=== PATIENT | female | born 1960 | race Caucasian/White ===

== ENCOUNTER 2018-09-24 12:04 | Emergency (ER) | payer MEDICARE, BC ==
[2018-09-24] MEDS ORDERED: MORPHINE SULFATE 4 MG/ML SYRINGE IM STA (12:23)
[2018-09-24] MEDS ORDERED: DIAZEPAM 5 MG TAB PO STA (12:23)
--- NOTE | 2018-09-24 12:34 | ED ---
Fall HPI - General Chief Complaint: Fall Stated Complaint: Fall Time Seen by Provider: 09/24/18 12:12 Source: patient Mode of arrival: ambulatory - History of Present Illness Initial Comments: 58-year-old female presenting today for chief complaint of low back pain. Patient states she fell from a porch off the edge onto the ground about 3 steps in height < 4 ft. She states she immediately noted low back pain. Patient states she was able to ambulate. She states she did use restroom before arriving denies any urinary retention. Patient denies any pain down the legs she denies any loss sensation or muscle weakness of the lower extremity. She states walking does have recurrent spasm in the lower back. Patient denies any injury to her middle of her upper back she denies any neck pain she denies any head injury. Patient has a loss of consciousness. Remaining review of systems negative patient denies any injury to the extremities. Upon arrival patient appears uncomfortable holding low back. - Related Data Previous Rx's Medication Instructions Recorded Acetaminophen with Codeine 1 tab PO Q4H PRN 3 Days #18 tab 09/24/18 [Tylenol w/codeine #3] Diazepam [Valium] 5 mg PO BID 4 Days #8 tab 09/24/18 Docusate [Colace] 100 mg PO DAILY 7 Days #7 capsule 09/24/18 Allergies Allergy/AdvReac Type Severity Reaction Status Date / Time No Known Allergies Allergy Verified 09/24/18 12:53 Review of Systems ROS Statement: Those systems with pertinent positive or pertinent negative responses have been documented in the HPI. ROS Other: All systems not noted in ROS Statement are negative. Past Medical History Additional Past Medical History / Comment(s): Back problems History of Any Multi-Drug Resistant Organisms: None Reported Past Surgical History: Section Past Psychological History: No Psychological Hx Reported Smoking Status: Former smoker Past Alcohol Use History: None Reported Past Drug Use History: None Reported General Exam - General Exam Comments Initial Comments: General: The patient is awake and alert, in no distress Appears uncomfortable holding low back. Eye: +3 m pupils are equal, round and reactive to light, extra-ocular movements are intact. No nystagmus. There is normal conjunctiva bilaterally. No signs of icterus. Ears, nose, mouth and throat: There are moist mucous membranes and no oral lesions. Neck: The neck is supple, there is no tenderness or JVD. Cardiovascular: There is a regular rate and rhythm. No murmur, rub or gallop is appreciated. Respiratory: Lungs are clear to auscultation, respirations are non-labored, breath sounds are equal. No wheezes, stridor, rales, or rhonchi. Gastrointestinal: Soft, non-distended, non-tender abdomen without masses or organomegaly noted. There is no rebound or guarding present. No CVA tenderness. Musculoskeletal: No muscle spasm in the lumbar spine with midline and paravertebral tenderness. No midline or paravertebral tenderness of the thoracic or cervical spine. Normal ROM at the hips, no internal or external rotation, no shortness, no tenderness. No midline or paravertebral tenderness to palpation of the C-spine. Strength 5/5 of the LE equal b/l however induced back pain/spasm. Sensation intact of the LE including saddle region. DP and radial pulses equal bilaterally 2+. Bruising lacerations or abrasions of the cervical thoracic or lumbar spine of upon inspection Neurological: A&O x 3. CN II-XII intact, There are no obvious motor or sensory deficits. Coordination appears grossly intact. Speech is normal. Skin: Skin is warm and dry and no rashes or lesions are noted. Psychiatric: Cooperative, appropriate mood & affect, normal judgment. Limitations: no limitations Course Vital Signs 09/24/18 09/24/18 12:08 14:08 Temperature 98.1 F 97.4 F L Pulse Rate 91 69 Respiratory 2 L 18 Rate Blood Pressure 154/84 138/91 O2 Sat by Pulse 100 98 Oximetry Medical Decision Making - Medical Decision Making 58yo female presenting today for fall. Patient complaining of low back pain. Patient neurovascularly intact no signs of cauda equina on history or examination. Patient symptoms improved with morphine and valium. Ambulatory. CT revealedmoderate superior endplate compartment impression fracture of L2 possible small prevertebral hematoma consistent with recent fracture. Multilevel disc bulging. Patient requesting discharge. I discussed the case as well as imaging studies with Dr. Ott who called on-call or thick surgeries who had Dr. Del Rio, who specializes in back/spine, who recommended discharge with TLSO brace and outpatient f/u. Patient was provided prescription for Tylenol No. 3. In addition to Valium. The use as well as possible risks involving benzodiazepines and opiates were discussed at length the patient verbalizes understanding. Patient was discharged appearing well and all questions answered to the best of my ability. Disposition Clinical Impression: Fall, Compression fracture of L2 Disposition: HOME SELF-CARE Condition: Good Instructions (If sedation given, give patient instructions): Vertebral Compression Fracture (ED) Additional Instructions: Please use medication as discussed. No driving consuming alcohol operating machinery or working under the influence of valium or tylenol #3. Please follow- up with Dr. Del Rio in the next 2-3 days, please use braces at all times as discussed especially ambulation. Please return to emergency room if the symptoms increase or worsen or for any other concerns. Prescriptions: Docusate [Colace] 100 mg PO DAILY 7 Days #7 capsule Acetaminophen with Codeine [Tylenol w/codeine #3] 1 tab PO Q4H PRN 3 Days #18 tab PRN Reason: Severe Pain Diazepam [Valium] 5 mg PO BID 4 Days #8 tab Is patient prescribed a controlled substance at d/c from ED?: No Referrals: None,Stated [Primary Care Provider] - 1-2 days Dimitris Del Rio, [Doctor of Osteopathic Medicine] - 1-2 days Time of Disposition: 15:00
--- NOTE | 2018-09-24 13:39 | XR ---
EXAMINATION TYPE: XR Hip Bilateral and AP pelvis DATE OF EXAM: 09/24/2018 COMPARISON: None HISTORY: Pain, fall TECHNIQUE: Bilateral hips are examined in 2 projections each supplemented with an AP pelvis FINDINGS: Femoral heads articulate with the acetabulum. Sacroiliac joints and symphysis pubis are nor mal. No acute fractures are evident. Sacrum as visualized is unremarkable. Joint spaces are preserved. Normal bowel gas present. IMPRESSION: 1. Normal bilateral hips and AP pelvis
--- NOTE | 2018-09-24 13:44 | CT ---
EXAMINATION TYPE: CT lumbar spine wo con DATE OF EXAM: 09/24/2018 1:20 PM COMPARISON: None HISTORY: low back pain. CT DLP: 561 mGycm Automated exposure control for dose reduction was used. Unenhanced CT of the lumbar spine was performed. Bone and soft tissue window settings are submitted as well as coronal and sagittal reconstructions. Subsegmental consolidation at both lung bases. L1-L2: There is a vacuum disc compatible with degenerative disc disease and a moderate superior endpl ate compression fracture. Neural foramina remain patent. No obvious canal stenosis. L2-L3: No disc herniation or canal stenosis. Hypertrophic change of the facets. Neural foramina paten t. L3-L4: More advanced facet arthropathy greater on the right with circumferential disc bulging and mil d effacement of thecal sac. Mild bilateral foraminal encroachment. L4-L5: Advanced facet arthropathy. No acute fracture. Broad-based central disc bulging with mild effa cement of thecal sac. Neural foramina remain patent. L5-S1: Facet arthropathy and central disc bulging greater paracentrally left with mild encroachment u queenie the exiting nerve roots greater on the left. Disc protrusion suspected. No acute fracture. IMPRESSION: 1. There is an age-indeterminate moderate superior endplate compression fracture of L2. Additionally there is increased density along the anterior margin of the L1-2 junction which may represent a small prevertebral hematoma which would be suggestive of a recent fracture. Infectious etiology not exclud ed. MRI with contrast recommended.. 2. There is multilevel degenerative disc disease and facet arthropathy with multilevel disc bulging m ost marked at L5-S1 centrally and paracentrally the left where he protrusion is suspected. This could be correlated with MRI. 3. Right basilar subsegmental atelectasis or infiltrate. Could not exclude retrocrural lymphadenopath y which could be correlated with a dedicated CT of the abdomen and pelvis..
[2018-09-24 14:08] VITALS: BP 138/91; PULSE 69; RESP 18; TEMP 97.4
== END 2018-09-24 15:05 | disposition home or self-care (01) ==
LOC: EC 12:04
DX: M48.56XA Collapsed vertebra, not elsewhere classified, lumbar region, initial encounter for fracture (principal); Z87.891 Personal history of nicotine dependence; W17.89XA Other fall from one level to another, initial encounter; Y92.009 Unspecified place in unspecified non-institutional (private) residence as the place of occurrence of the external cause
CPT/HCPCS: 73521; 72131; 99284; 96372; J2270

== ENCOUNTER → 2021-06-24 | Outpatient (CLI) | payer BC ==
[2021-06-24 15:26] LABS: ALT 10 U/L (8-44); AST 16 U/L (13-35); Albumin 4.7 g/dL (3.8-4.9); Albumin/Globulin Ratio 1.72 (1.60-3.17); Alkaline Phosphatase 48 U/L (41-126); BUN/Creat Ratio 21.83 Ratio (12.00-20.00); Blood Urea Nitrogen 16.2 mg/dL (9.0-27.0); Calcium 9.8 mg/dL (8.7-10.3); Carbon Dioxide 23.9 mmol/L (20.0-27.5); Chloride 103 mmol/L (96-109); Globulin 2.8 g/dL (1.6-3.3); Glucose 114 mg/dL (70-110); Non-African American GFR(CKD) 87.2 (60.0-200.0); Potassium 4.9 mmol/L (3.5-5.5); Sodium 139 mmol/L (135-145); Total Protein 7.5 g/dL (6.2-8.2)
[2021-06-24 15:43] LABS: Basophils # (A) 0.03 X 10*3/uL (0.00-0.10); Basophils % (A) 0.6 %; Eosinophils # (A) 0.07 X 10*3/uL (0.04-0.35); Eosinophils % (A) 1.3 %; HCT 41.6 % (37.2-46.3); HGB 13.3 g/dL (12.0-15.0); Lymphocytes # (A) 1.44 X 10*3/uL (0.90-5.00); Lymphocytes % (A) 27.3 %; MCH 30.5 pg (27.0-32.0); MCV 95.4 fL (80.0-97.0); Mean Platelet Volume 11.2 fL (9.5-12.2); Monocytes # (A) 0.41 X 10*3/uL (0.20-1.00); Monocytes % (A) 7.8 %; Neutrophils % (A) 62.6 %; Platelet Count 197 X 10*3/uL (140-440); RBC 4.36 X 10*6/uL (4.10-5.20); RDW 12.7 % (11.5-14.5); WBC 5.27 X 10*3/uL (4.50-10.00)
[2021-06-24 15:58] LABS: C Reactive Protein <0.30 mg/dL (0.00-0.80)
[2021-06-24 17:29] LABS: Gliadin AB IgA, Deaminated NEGATIVE (NEGATIVE); Gliadin AB IgA, Unit 1.3 U/mL; Gliadin AB IgG, Deaminated NEGATIVE (NEGATIVE)
[2021-06-24 17:59] LABS: Erythrocyte Sedimentation Rate 13 mm/Hr (0-30)
== END | disposition home or self-care (01) ==
LOC: LABWHC1 10:30
PROVIDERS: ATTEND Nurse Practitioner Family
DX: R19.4 Change in bowel habit (principal)
CPT/HCPCS: 36415; 80053; 83516; 85025; 85652; 86140

== ENCOUNTER 2021-07-29 06:25 | Day surgery (SDC) | payer BC ==
[2021-07-28 09:59] VITALS: BMI 24.5
[~2021-07-29 06:25] MED LIST: LACTATED RINGERS 1,000 ML IV SCH
[2021-07-29 07:01] VITALS: TEMP 97.4
[2021-07-29] MEDS ORDERED: LIDOCAINE 1% INJ 10MG/ML (20 ML MDV) ONE (07:30)
[2021-07-29] MEDS ORDERED: PROPOFOL 10 MG/ML 20 ML VIAL IV ONE (07:30)
--- NOTE | 2021-07-29 07:56 | P.PCN ---
Date of Procedure: 07/29/21 Procedure(s) Performed: Brief history: Patient is a pleasant 61-year-old white female scheduled for an elective upper endoscopy as well as colonoscopy as a part of evaluation of GERD and change in bowel Procedure performed: Esophagogastroduodenoscopy with biopsy Colonoscopy with snare polypectomy and Endo Clip placement Preoperative diagnosis: GERD Change in bowel Anesthesia: MAC Procedure: After informed consent was obtained from the patient was brought into the endoscopy unit and IV sedation was administered by anesthesia under continuous monitoring. Initially upper endoscopy was done. The Olympus GF 160 video endoscope was inserted inserted into the mouth and esophagus intubated without a ny difficulty and was gradually advanced into the stomach and duodenum and carefully examined. The bulb and second part of the duodenum appeared normal. Biopsies were done from the duodenum to rule out celiac disease. The scope was then withdrawn into the stomach adequately insufflated with air and upon careful examination the antrum and mild erosive gastritis and biopsies were done from this area. The body, cardia and fundus appeared normal. The scope was then withdrawn into the esophagus. The GE junction was located at 39cm to the incisors. It appeared regular with no erythema erosions or ulcerations. Rest of the esophagus appeared normal. Patient tolerated the procedure well. At this time the patient continued to remain sedation. Initial digital rectal examination was normal. Olympus CF 160 video colonoscope was then inserted into the rectum and gradually advanced to the cecum without any difficulty. Careful examination was performed as the scope was gradually being withdrawn. The prep was excellent. The cecum, appeared normal. In the ascending colon there was a 2.5 and admitted broad-based polyp that was completely removed by snare polypectomy. Following polypectomy and Endo Clip placed. Rest of the ascending colon, transverse colon, descending colon, sigmoid colon and rectum appeared normal. The sigmoid: There was a 1 cm pedunculated polyp removed by snare polypectomy Retroflexion was performed in the rectum and small internal were noted. Scattered sigmoid diverticulosis. Patient tolerated the procedure well. Impression: 1. Upper endoscopy revealed mild antral erosive gastritis. 2. Colonoscopy revealed 2.5 cm broad-based ascending colon polyp status post piecemeal snare polypectomy followed by Endo Clip placement and a 1 cm; sigmoid polyp status post polypectomy. Small internal hemorrhoids and scattered sigmoid diverticula Recommendations: Findings of this examination were discussed with the patient as well as her family. She was advised to follow with the biopsy results. She'll be seen in office in 2 weeks. She'll be seen in office in 1 week to discuss biopsy results. If the biopsy results and plan a repeat colonoscopy in 3 years.
[2021-07-29 08:22] VITALS: BP 131/82; PULSE 83; RESP 16
== END 2021-07-29 08:43 | disposition home or self-care (01) ==
LOC: ORWHC2ENDO 06:25
PROVIDERS: ATTEND Internal Medicine Gastroenterology
DX: D12.2 Benign neoplasm of ascending colon (principal); D12.5 Benign neoplasm of sigmoid colon; K57.30 Diverticulosis of large intestine without perforation or abscess without bleeding; K21.9 Gastro-esophageal reflux disease without esophagitis; K29.50 Unspecified chronic gastritis without bleeding; Z79.899 Other long term (current) drug therapy
CPT/HCPCS: 88305; 88342; 45385; 43239; J2001; J2704; 45382

== ENCOUNTER 2023-01-01 14:12 | Emergency (ER) | payer OTHER ==
[2023-01-01 14:37] VITALS: RESP 18; TEMP 98.1
--- NOTE | 2023-01-01 15:30 | ED ---
Chest Pain HPI - General Source: patient, RN notes reviewed Mode of arrival: ambulatory Limitations: no limitations <Rima Flower - Last Filed: 01/01/23 15:36> - General Source: RN notes reviewed, old records reviewed - History of Present Illness MD Complaint: chest pain, other (Shortness of breath weakness) -: month(s) Onset: during rest, during exertion Pain Location: substernal, left chest Pain Radiation: none Severity: moderate Severity scale (1-10): 7 Consistency: constant Improves With: nothing Worsens With: nothing Context: recent illness Anginal Symptoms: diaphoresis, dyspnea, sense of impending doom Other Symptoms: palpitations Treatments Prior to Arrival: none <Irineo Silva - Last Filed: 01/03/23 12:35> - General Chief Complaint: Chest Pain Stated Complaint: chest pain, sob, palpitations Time Seen by Provider: 01/01/23 15:28 - History of Present Illness Initial Comments: Patient is a 62 year old female who presents to the emergency department for chest pain. (Rima Flower) This is a 62-year-old female to the ER today for evaluation of weakness chest pain shortness of breath. Patient admits to symptoms ongoing for about a month now. She states something is wrong as well as having persistent left-sided chest pain. Patient has no medical history takes no medications nonsmoker nondrinker. No travel no trauma. Patient has been tested for Coban was negative has been treated for bronchitis without improvement. Patient presents to the ER today for evaluation of chest pain (Irineo Silva) - Related Data Home Medications Medication Instructions Recorded Confirmed L.acidoph,Paracasei, B.lactis 1 cap PO DAILY 01/01/23 01/01/23 [Probiotic] Vitamin D3(Unknown Dose) 1 tab PO DAILY 01/01/23 01/01/23 Zinc Gluconate [Zinc] 50 mg PO DAILY 01/01/23 01/01/23 Allergies Allergy/AdvReac Type Severity Reaction Status Date / Time No Known Allergies Allergy Verified 01/01/23 17:32 Review of Systems ROS Other: All systems not noted in ROS Statement are negative. <Rima Flower - Last Filed: 01/01/23 15:36> ROS Other: All systems not noted in ROS Statement are negative. <Irineo Silva - Last Filed: 01/03/23 12:35> ROS Statement: Those systems with pertinent positive or pertinent negative responses have been documented in the HPI. EKG Findings - EKG Comments: EKG Findings:: She is sinus 73 KS 160 QRS 86 QTc 4:30 <Irineo Silva - Last Filed: 01/03/23 12:35> Past Medical History Past Medical History: GERD/Reflux Additional Past Medical History / Comment(s): alternating with constipation and diarrhes-having some bleeding with stools.hx Back problems History of Any Multi-Drug Resistant Organisms: None Reported Past Surgical History: Section Additional Past Surgical History / Comment(s): c sect x 3 Past Anesthesia/Blood Transfusion Reactions: Motion Sickness, Postoperative Nausea & Vomiting (PONV) Past Psychological History: No Psychological Hx Reported Smoking Status: Former smoker Past Alcohol Use History: None Reported Past Drug Use History: None Reported - Past Family History Mother Family Medical History: Cancer Additional Family Medical History / Comment(s): breast CA Father Family Medical History: Cancer Additional Family Medical History / Comment(s): kidney <Rima Flower - Last Filed: 01/01/23 15:36> General Exam Limitations: no limitations <Rima Flower - Last Filed: 01/01/23 15:36> General appearance: alert, in no apparent distress, anxious Head exam: Present: atraumatic, normocephalic, normal inspection Eye exam: Present: normal appearance, PERRL, EOMI. Absent: scleral icterus, con junctival injection, periorbital swelling ENT exam: Present: normal exam, mucous membranes moist Neck exam: Present: normal inspection. Absent: tenderness, meningismus, lymphadenopathy Respiratory exam: Present: normal lung sounds bilaterally. Absent: respiratory distress, wheezes, rales, rhonchi, stridor Cardiovascular Exam: Present: regular rate, normal rhythm, normal heart sounds. Absent: systolic murmur, diastolic murmur, rubs, gallop, clicks GI/Abdominal exam: Present: soft, normal bowel sounds. Absent: distended, tenderness, guarding, rebound, rigid Extremities exam: Present: normal inspection, full ROM, normal capillary refill. Absent: tenderness, pedal edema, joint swelling, calf tenderness Back exam: Present: normal inspection Neurological exam: Present: alert, oriented X3, CN II-XII intact Psychiatric exam: Present: normal affect, normal mood Skin exam: Present: warm, dry, intact, normal color. Absent: rash <Irineo Silva - Last Filed: 01/03/23 12:35> - General Exam Comments Initial Comments: Visual Physical Exam Vital signs reviewed General: Well-appearing, nontoxic, no acute distress. Head: Normocephalic, atraumatic Eyes: PERRLA, EOMI ENT: Airway patent Chest: Nonlabored breathing Skin: No visual rash, normal skin tone Neuro: Alert and oriented 3 Musculoskeletal: No gross abnormalities (ChingRima) Course <Irineo Silva - Last Filed: 01/03/23 12:35> Vital Signs 01/01/23 01/01/23 01/01/23 14:34 15:50 20:37 Temperature 98.1 F Pulse Rate 87 80 67 Respiratory 18 18 18 Rate Blood Pressure 155/95 149/83 120/87 O2 Sat by Pulse 99 99 96 Oximetry - Reevaluation(s) Reevaluation #1: 01/01/23 18:43 Medical records reviewed (Irineo Silva) Reevaluation #2: 01/01/23 18:43 Patient still with significant chest pain here in the ER Studies chest x-ray interpreted by me negative for acute disease (Irineo Silva) Reevaluation #3: 01/01/23 19:52 Patient informed of results and questions answered Studies Chest x-rays negative for acute disease (Irineo Silva) Reevaluation #4: 01/01/23 18:43 Was pt. sent in by a medical professional or institution (, PA, SOLUTION ARCHITECT, urgent care, hospital, or longterm...) When possible be specific @ -no Did you speak to anyone other than the patient for history (EMS, parent, family, police, friend...)? What history was obtained from this source @ -no Did you review nursing and triage notes (agree or disagree)? Why? @ -agree Are old charts reviewed (outside hosp., previous admission, EMS record, old EKG, old radiological studies, urgent care reports/EKG's, longterm records)? Report findings @ -yes Differential Diagnosis (chest pain, altered mental status, abdominal pain women, abdominal pain men, vaginal bleeding, weakness, fever, dyspnea, syncope, headache, dizziness, GI bleed, back pain, seizure, CVA, palpatations, mental health, musculoskeletal)? @ -prior EKG interpreted by me (3pts min.). @ -yes X-rays interpreted by me (1pt min.). @ -yes CT interpreted by me (1pt min.). @ -no U/S interpreted by me (1pt. min.). @ -no What testing was considered but not performed or refused? (CT, X-rays, U/S, labs)? Why? @ -none What meds were considered but not given or refused? Why? @ -none Did you discuss the management of the patient with other professionals (professionals i.e. , PA, SOLUTION ARCHITECT, lab, RT, psych nurse, social staff worker, warehouse processor, teacher, corrections officer, immigration case worker)? Give summary @ -no Was smoking cessation discussed for >3mins.? @ -no Was critical care preformed (if so, how long)? @ -no Were there social determinants of health that impacted care today? How? (Homelessness, low income, unemployed, alcoholism, drug addiction, transportation, low edu. Level, literacy, decrease access to med. care, [facility], rehab)? @ -none Was there de-escalation of care discussed even if they declined (Discuss DNR or withdrawal of care, Hospice)? DNR status @ -no What co-morbidities impacted this encounter? (DM, HTN, Smoking, COPD, CAD, Cancer, CVA, ARF, Chemo, Hep., AIDS, mental health diagnosis, sleep apnea, morbid obesity)? @ -none Was patient admitted / discharged? Hospital course, mention meds given and route, prescriptions, significant lab abnormalities, going to OR and other pertinent info. @ - 62 female to the emergency department for evaluation. Patient presents today for evaluation regards to shortness of breath weakness fatigue and chest pain. Symptoms for about a month now. No change in current symptoms here in the ER but patient is reassured or findings, she feels good with reassurance and can be discharged home Discharge Undiagnosed new problem with uncertain prognosis? @ -no Drug Therapy requiring intensive monitoring for toxicity (Heparin, Nitro, Insulin, Cardizem)? @ -no Were any procedures done? @ -no Diagnosis/symptom? @ -Chest pain, fatigue and weakness Acute, or Chronic, or Acute on Chronic? @ -Acute Uncomplicated (without systemic symptoms) or Complicated (systemic symptoms)? @ -Complicated Side effects of treatment? @ -no Exacerbation, Progression, or Severe Exacerbation? @ -exacerbation Poses a threat to life or bodily function? How? (Chest pain, USA, OR, pneumonia, PE, COPD, DKA, ARF, appy, cholecystitis, CVA, Diverticulitis, Homicidal, Suicidal, threat to staff... and all critical care pts) @ -yes if chest pain is ACS (Irineo Silva) Reevaluation #5: 01/01/23 18:43 Differential Chest Pain: Stable Angina, Unstable Angina, STEMI, NSTEMI Aortic Dissection, Pneumothorax, Musculoskeletal, Esophageal Spasm GERD, Cholecystitis, Pancreatitis, Zoster, this is not meant to be an all-inclusive list. Differential Dyspnea: Coronary syndrome, arrhythmia, tamponade, asthma, COPD, pulmonary embolism, pneumonia, pneumothorax, pulmonary effusion, anaphylaxis, diabetic ketoacidosis, flailed chest, pulmonary contusion, diaphragmatic rupture, anemia, neuromuscular, this is not meant to be an all-inclusive list. Differential Weakness: Hypoglycemia, shock, sepsis, hyponatremia, anemia, infection, OR, ETOH, adverse medicine reaction, overdose, stroke, this is not meant to be an all-inclusive list. (Irineo Silva) Chest Pain [facility] <Rima Flower - Last Filed: 01/01/23 15:36> <Irineo Silva - Last Filed: 01/03/23 12:35> - MDM I performed the QuickNote portion of this chart - Rima Flower PA-C (Rima Flower) 62 female to the emergency department for evaluation. Patient presents today for evaluation regards to shortness of breath weakness fatigue and chest pain. Symptoms for about a month now. No change in current symptoms here in the ER but patient is reassured or findings, she feels good with reassurance and can be discharged home (Irineo Silva) Disposition <Rima Flower - Last Filed: 01/01/23 15:36> Is patient prescribed a controlled substance at d/c from ED?: No Time of Disposition: 19:50 <Irineo Silva - Last Filed: 01/03/23 12:35> Clinical Impression: Atypical chest pain, Weakness, Fatigue, Chest pain Disposition: HOME SELF-CARE Condition: Good Instructions (If sedation given, give patient instructions): Weakness (ED) Referrals: None,Stated [Primary Care Provider] - 1-2 days
--- NOTE | 2023-01-01 15:51 | XR ---
EXAMINATION TYPE: XR chest 2V DATE OF EXAM: 01/01/2023 COMPARISON: NONE HISTORY: Chest pain and shortness of breath. TECHNIQUE: Frontal and lateral views of the chest are obtained. FINDINGS: There is no focal air space opacity, pleural effusion, or pneumothorax seen. The cardiac silhouette size is within normal limits. The osseous structures are intact. IMPRESSION: No acute cardiopulmonary process.
[2023-01-01 16:20] LABS: ALT 29 U/L (4-34); AST 25 U/L (14-36); African American GFR (CKD) >90 (>60 ml/min/1.73 sqM); Albumin 4.8 g/dL (3.5-5.0); Alkaline Phosphatase 51 U/L (38-126); Anion Gap 9 mmol/L; Blood Urea Nitrogen 13 mg/dL (7-17); Calcium 9.7 mg/dL (8.4-10.2); Carbon Dioxide 27 mmol/L (22-30); Chloride 103 mmol/L (98-107); Glucose 97 mg/dL (74-99); Lipase 126 U/L (23-300); Magnesium 2.2 mg/dL (1.6-2.3); Non-African American GFR(CKD) >90 (>60 ml/min/1.73 sqM); Potassium 3.9 mmol/L (3.5-5.1); Sodium 139 mmol/L (137-145); Total Bilirubin 0.5 mg/dL (0.2-1.3); Total Protein 8.1 g/dL (6.3-8.2)
[2023-01-01 16:30] LABS: Basophils % (A) 1 %; Eosinophils # (A) 0.1 k/uL (0-0.7); Eosinophils % (A) 2 %; HCT 45.3 % (34.0-46.0); HGB 15.3 gm/dL (11.4-16.0); Lymphocytes # (A) 2.2 k/uL (1.0-4.8); Lymphocytes % (A) 36 %; MCH 30.9 pg (25.0-35.0); MCHC 33.8 g/dL (31.0-37.0); MCV 91.4 fL (80.0-100.0); Mean Platelet Volume 8.3; Monocytes # (A) 0.3 k/uL (0-1.0); Monocytes % (A) 5 %; Neutrophils # (A) 3.4 k/uL (1.3-7.7); Neutrophils % (A) 56 %; Platelet Count 205 k/uL (150-450); RBC 4.95 m/uL (3.80-5.40); RDW 13.1 % (11.5-15.5); WBC 6.1 k/uL (3.8-10.6)
[2023-01-01 16:31] LABS: INR 1.1 (<1.2); Partial Thromboplastin Time 22.7 sec (22.0-30.0); Prothrombin Time 11.4 sec (9.0-12.0)
[2023-01-01] MEDS ORDERED: SODIUM CHLORIDE 0.9% 1,000 ML IV STA (17:34)
[2023-01-01 20:39] VITALS: BP 120/87; PULSE 67
== END 2023-01-01 20:38 | disposition home or self-care (01) ==
LOC: EC 14:12
DX: R07.89 Other chest pain (principal); R53.1 Weakness; R53.83 Other fatigue; Z87.891 Personal history of nicotine dependence
CPT/HCPCS: 36415; 71046; 80053; 83690; 83735; 84443; 84484; 85025; 85379; 85610; 85730; 93005; 96360; 99285